=== PATIENT | female | born 1985 | race Caucasian/White ===

== ENCOUNTER 2023-06-14 09:08 | Outpatient (OUT) | payer BC, SELFPAY | END 2023-06-14 09:09 | disposition home or self-care (01) | LOC: SLEEP 09:11 | PROVIDERS: PCP Nurse Practitioner Family; Visit Provider Nurse Practitioner Family | DX: G47.33 Obstructive sleep apnea (adult) (pediatric) (principal) ==

== ENCOUNTER 2023-07-05 11:00 | Outpatient (OUT) | payer BC, SELFPAY ==
--- OUTSIDE RECORDS SUMMARY | 2023-07-06 07:13 | XMS_ITS | CCD ---
Author Organization [facility] Care Team Providers Care Electrical Design Technician Name Role Phone SHIRAZ INTERIANO Attending Unavailable SHIRAZ INTERIANO Admitting Unavailable SHIRAZ FIGUEROA Primary Care Physician Roby Poole Attending Unavailable ZulemaRoby laird Admitting Unavailable ZulemaRoby Attending Unavailable ZulemaRoby naidu Attending Unavailable Zulema, Roby Thompson Attending Unavailable SHIRAZ FIGUEROA Attending Unavailable SHIRAZ FIGUEROA Admitting Unavailable Allergies Allergy Classification Reported Allergen(s) Allergy Type Date of Onset Reaction(s) Facility (2 sources) Erythromycin; Translations: [erythromycin] Drug Allergy [facility] Comment on above: Unknown reaction, nagel d as a child (1 source) Penicillins; Translations: [penicillins] Drug allergy [facility] Comment on above: Unknown reaction, nagel d as a child (1 source) Sulfonamides (Antibiotic); Translations: [sulfa drugs] Drug allergy [facility] Comment on above: Unknown reaction. nagel d as a child (1 source) Penicillins; Translations: [penicillins] Propensity to adverse reactions (disorder) [facility] (1 source) Sulfonamides (Antibiotic); Translations: [sulfa drugs] Propensity to adverse reactions (disorder) [facility] Medications Current Medications Medication Drug Class(es) Dates Sig (Normalized) Sig (Original) acetaminophen 325 mg / oxyCODONE hydrochloride 5 mg oral tablet (1 source) Opioid Agonist Start: 04-17-2015 Percocet 325 mg-5 mg Tab 1 tab(s), Oral, q4hr as needed for pain, 20 tab(s), Refill(s) 0, Take one tab by mouth every four hours as needed for pain Start Date: 04/17/15 Status: Ordered busPIRone hydrochloride 10 mg oral tablet (1 source) Start: 04-17-2015 take 1 tablet by mouth once daily busPIRone 10 mg Tab 10 mg = 1 tab(s), Oral, Daily, Refills(s) 0, Anxiety Start Date: 04/17/15 Status: Ordered Fish Oils (1 source) Start: 08-17-2018 Fish Oil Oral, Refill(s) 0 Start Date: 08/17/18 Status: Ordered Multi Vitamin+ (1 source) Start: 08-17-2018 Multi Vitamin+ Refill(s) 0 Start Date: 08/17/18 Status: Ordered Turmeric extract (1 source) Start: 08-17-2018 Turmeric 500mg Turmeric 500mg Start Date: 08/17/18 Status: Ordered Problems Active Problems Problem Classification Problem Date Documented Da te Episodic/Chronic Substance-related disorders (1 source) Smoker 04-29-2020 Chronic Comment on above: Added secondary to d ocumentation in Social History. Past or Other Problems Problem Classification Problem Date Documented Da te Episodic/Chronic Unclassified (1 source) None (qualifier value) 12-11-2010 Results Test Name Value Interpretation Reference Range Facil ity Coding Summary.on 06-17-2021 Coding Summary. CD:[id number] 13GOf5uYq+PGhlYWQ +DZ1DIHUrB56laHVl hL4GS4zRMD0PEUZVR UKPKI9ZZU7tfEC6GO emT7ZncdTf ShmdvKUnGY69PKm2H EW5hKkeFFmiwE6asC HgE1v0NeWxKI76lO4 2DBsbKLGhAtV8GyJl bjsgbWFy Z6tgWgRtsZIlEcc+P HRhYmxlIHdpZHRoPS cxMDAlJyBzdHlsZT0 jSq7yCPWcSWCjaLlt cHNlOiBj r3ioKIMjJEcxWM1oo SggF4TewZI6LYTxl0 r7Uu68vHN+PHRkIHN 0cVskKMllm668BzPp i4lgBBU9 nHOpORthHOU4L49di 1H9NFBwAWVqQNH3yJ T6cB0mvJooxbwjI5B abCFrLyU5ABJ8jHGh zM9tfJug qaejtR7zHzj+Q09ES Z9KHDWZUV3COxg2I2 RkPjwvdHI+NN16ADL sLV50iQNftCWgj2wx gCy9NxFi PFXdCIZ2jSveKXavx 2CwEJFkK91toJYkz8 B0NRSgaSriyZJpQtF tbLG5xQ5yVIkezaiy n9osqmwu Leknn8frim53yM41N 47gVIsdXIYgSEL9JK ZmKKWivRaleo8ygR9 wIi8+NYxlq0jbd7ec wLp1AwLk HRJfpnPzuHjxPVS6z 4OuSf83R2FaoSteq6 DmIvv7wj58qANvp1A 6xUD3HHniJYPotG8o LWxlZnQ6 KZJeUwMisB51tHEfL LkvIq9gcEnpiMpkXI 0kJQLccwtaVQJbrC9 mCAAbbDObyZblDT3c NTBpbjtm d796FgDpGYC1UCYkc EPsW8PgoV2uNoNgLI NxWJHwB8UkcJRqNJo wK601AQdjQlU3NKCp mgXzX5Ns SQDlhJzgVbW4f5U2G d4Bd4JwrduwBWF9VS rcPVY3SpLmBqWeMkR 2I2GdNzw0JXAcxAbr SK3rX9Xq RPEwqdecrwhuxLI9E SYpZMGeoH57qOOqQO xePd5vx2R3t198DUP aDZSucT38Vv6kaSqf MTBwdCBU pW1eqznfh0zuppuiV zYaRNNlLWc5YCu5OT CsyWybLhCfPGY9GsI 6IDJ1pIPgiZ3hvHgm wpuydB5y Oyc+R35xbT4oSBR7O EX2vomsWCHgroGdCC 70TU46M7IsWyfexKL ibGU+PGRpdiBzdHls LF8hGeMi w1hql7OyJMrqH5KcE ZVuOSgfZfg2LLXbCU U1bRI1nA8aKFIhXDs jf3N3oYE3C1TwedVy fa0rt9sg RPEzMEdzR26wgYVzs 8Z7JNKagVB6LBPkfC bbGxIjjA71Fgd+PGN pvStsr2WpNkybp6pv j6noeKm3 IjMwJSIgdmFsaWduP HT7k5JcDx61X04oUY dpZHRoPSIxNSUiIHZ njOdblt1etK7uRr1+ PGNvbCB3 oDS8oI6iMTJuEnP3J UncS749KrXosKZpRg akr4srj9ykxVy5AhY wJSIgdmFsaWduPSJ0 p3QzNv90 K72pDTciBNWaWZTbY SIoVGFlrAkfvr4ayZ 9wIi8+DG1qv2ujdz8 0dQ42tFQ+PHRkIHN0 eWxlPSdw GHBvcU6wWHhfSrR9L CIbTxUqgS51pEYzKF jjSe8jcDntuSlmNE2 eBZDizcxsg851EkOg j3fvBPZp qFWlTIzuQXW5C02gg 2X9SIImEKLjDGU9sS Q2zU7evEcndcgewDM mdDsgdmVydGljYWwt BIxvF724 IHRvcDsnPlBhdGllb uBjUhHcWOd1V1TuOp e5QTNsvDxsCC8npDX iJAhwOp5agKxwwDcb UC3cPRNh mtwns335ZbLrx1qiY NYqpQSsJBbwZTA4B6 1ja2E9TSWpZHNtHJS 0cQL7gX8rnUbrrans bGVmdDsg dmVydGljYWwtYWxpZ 246IHRvcDsnPkJpcn TkFPPclTV9FX68AS5 7gSYev4Y1fEF7K6Df ZGRpbmct ovylaCE1YHVmEFHlb H85Fd2pqGdwQp3cQI MlSLP4PTFxxQSkE0T dqS3oSdWpZOEuEAQv N6UqgWGk MKsuR143QStsZeS5S OCmtyOpL3DqMAQbtE pmVfZ4m5Y0St1SE4C 9ZB82XU64yLQjd5A0 mAV6J2Sa KETnfglqliiaoKE8J DYjQTKclG94Xt4cnQ rzBe6tMVGaTCR4FGQ cjLKcM9DhoU9kPfBn MDAwMDAw Y1YteEIeAMbcG405J KreErP6KVMhgrBeK4 GuQDAzwDhcXlU8v3J 1Nt0RQOr0WD86CK58 xXSob0Q4 rXG6V2NqWQCxmqivn qfksTB5ICPfARPoeB 84La7vmIgoWi2gZIT bXBG8KFPinRWwJ3Cq cT9aMwVr JYIvGKMwV4InuZXaM RqyV575JBzuGlR7GB RrefGlG8FzKSXdqBf tBcO5a2Z2Ud8OQCIc XQ39AIW2 uMX6SY82DZ81I9WcS jwvdGFibGU+PHRhYm xlIHdpZHRoPScxMDA jVtIqoObuFU7eYr3i ZGVyLWNv mFgaqPUtYlCsg0lzG DNfLJdfWT4vcEbxX4 JgiOY2TXKrb3r3Uj4 9H64bY1IdrGH+PGNv jSN5hRP7 sE3nYyWsBtF8CSblV 946UvYozDFzAwrue5 jkx9prfXu3VeH3RXF lvyOfwXfbNIU4y4Tt Uz46W55j IHdpZHRoPSIxNSUiI BRskZullb0eiP7zXt 8+BLRamMM8yIO7kJ8 jYxWuKlO5KLifP188 InRvcCIv Fqlbe8rtx3krlQj2T jIwJSIgdmFsaWduPS B4q7SjKb46I8XlvRn fj4VlNzh9zo29fZDs l2W4sAK6 V4UoEYFcwwqwfMKfq SnrOW9wCLGsqzvlAG LfdT6rGXEvD6c6HuJ qDhE1NAnlA8QuszV1 IDEwcHQg PUowYGH7H52iy3V5Q THaVWReNMT1xLH3qX 1hbGlnbjogbGVmdDs gdmVydGljYWwtYWxp I021XXEu dKjmGFHviX2vJMPht EGdtZzdJV3mYXMzhr snPktJTlNFWSwgQkV DAQBCIBMVST32UK78 mHZil5S0 aNS4N6OwDLRjvercu dfjrVJ5ALDgKQNblO 90hUXfPOtuEw4er4E 5p733VZFbBAXtiM28 Uy9mjVyv JPDloDENjG9qggbuu 2xvcjogIzAwMDAwMD l6ZSb4SGQvcPdrBsV eHGP2MtP8ITF7xMDr bD2srHgo vozxxE8xUsq+MTIvM RpxQYw8AQzmkSL+PH XgFBM0rAtiWByvPWG vtZ4zOYKkQ3w6VeYw XtG7EWri B6OaGHBpzabsEa41u C7cCjXcNdV0QJmrL9 CqdzA4ZJEjjCKvZWp sPJD0I98fl1L1KIVy MDAwMDA7 yRC6dH1vaMsguwkyp GVmdDsgdmVydGljYW ruZSbhA468RNZmwVq vDrX4KTojCPQnVS23 FS22eHNq l0F3rRN9B4HmFLImv ucpzwzrkTG9STQpES OyiQ23zSPbLOtpJh2 wl8E1s379CLNbFTVe eA43Oi7c cXjhYWOgbNHEyE3dp biqi7ssimjdAyKmTF GeXVf0AAl6JCWfbKv tFpJtTXW8MgP0XZL7 iHNicU8m dBzapcgzgR1kPzi+R uDlXMruBW42VW81pD Vqu2H3uVX6T1KkOGK ovxgzvxcwzXD6BQDz KHVlaG13 hOPdXNcsMr0xr0H0h 700YEFnDBRqoA07Ih 4pdWlmCNUhmHGSiE5 xgqdal8emfhgtAzPw MDAwMDt0 TJd1SSDgoUptNgQiD OR8VuV9WBK5xOOgqY 2wcXtxecnexL8wTee +Z6K8uLM6tRJvbJdl dGQ+PC90 pu78G2NqEnhjIps6R RTgKGQ3uGS4bL9iIT SoYHqxb5T7zTV6Z2S lkzEhsz3uj2swHKFu DBipD35l aYOwf6Z1YZGfjCC9E YUbhFerUcWdrR92Dw c+RIFnhJwnj1WnXfw wu9bmv7zrhVh1ImWt JSIgdmFs xTmwCTE2d9ApJi33Q 29sIHdpZHRoPSIzMC ZjDMShjLexyg8ekL0 wIi8+RHBulUZ8oCX9 tM1oVhEm GmM7YBuzY599JcQnh OJuObbss3pap7oyfB g9AaQbAUFlbjGreUk zSQF9p4YhBm33D4So xYacj9Qe Hqz9yk78vBKpf9S0b MX8H4PlRYGviuwlpI FovYdbVW8cFFLjmxu bSJWyqF0sRTWeV8p7 OiAwLjA1 JIacG9RfyaD9HCFdt VJtPCGwkNTKkY4pzh otq8sfoorrFiOcODI mVZn6MKa8XLVvxVdi OiBsZWZ0 XqF5IME1dQHjeN7vo XzhascuzA8mDob+UG i8o1wsuHIzRK5xoXR 8GS60QX57xKGph6C7 yWF2C3Ph WMSdksprxofnwXH4Y HFcWAKaeF51Po6ekC uxKu2jVDJhZVF2JBB kgWYdP6AqoO3gKgUu MDAwMDAw G0QuwQNsEHgeV497T WtdEzU5NHKiuiFaB2 WhRCDnjDubUiY8p2B 1Fm3UNG19KG05MD08 lRRij3N6 eSD4X8EeJYKlxzueu wrvgJC5QNHpLKBroI 95Jc0pyXvaKz2cQNB gLAE2PRGbiRGmY0Af aL1lQaHu OHXfBBRgL9ZowDWwW JpzZ369ARzuCqU0PU BdvmOcL9RvFIGogAx wMbR4z4X4Jp0EVi67 WA00KD73 pYIxb8F0bCZ0M7FrG JOzshisfafdqZC0EM GfCKRqbP53Us0qhVf nZx2lJBRnSSA1VUWd bIWsQ6Pv zN7nUeMfNTEqBKEdV 5LvwWJaLWqaZ345IA lbVnN1VYEstzXgJ6H gRDIiwCqmTbZ3p7M4 Qj7MLIoc ico0J3UwOnvnyQG+P V57PJEvNA22gGFrpA Xgn4bweFk0ZsXbMXG uQYK8jZzoQCvyd5Ua EKWbJ79v bGFw (more content not included)... Normal [facility] CHEMISTRYOrdered By: SYSTEM SYSTEM on 06-11-2021 Free T4 index Calc [Mass/Vol] 5.40 ng/dL Low 5.90 - 13.10 ng/dL [facility] T4 [Mass/Vol] 5.0 ug/dL Normal 4.6 - 9.1 mcg/dL [facility] T4 uptake [Mass/Vol] 43.2 % Normal 32.0 - 48.4 % [facility] TSH Qn 0.67 m[IU]/L Normal 0.34 - 5.60 mcIU/mL [facility] Consent for Treatmenton Consent for Treatment [id number] 1ACE#1.00CD:127 Normal [facility] Physician Orderon 06-11-2021 Physician Order [id number]#[id number]:12 7 Normal [facility] Thyroid IIon 06-11-2021 Free T4 index Calc [Mass/Vol] 5.40 ng/dL Low 5.90-13.10 [facility] Comment on above: Performed By: #### 1 [id number] #### [facility] [address] [place] [address] T4 [Mass/Vol] 5.0 microgram/dL Normal 4.6-9.1 [facility] Comment on above: Performed By: #### 1 [id number] #### [facility] [address] [place] [address] T4 uptake [Mass/Vol] 43.2 % Normal 32.0-48.4 [facility] Comment on above: Performed By: #### 1 [id number] #### [facility] [address] [place] [address] TSH Qn 0.67 m[IU]/L Normal 0.34-5.60 [facility] Comment on above: Performed By: #### 1 [id number] #### [facility] [address] [place] [address] Consent for COVID Vaccineon 03-06-2021 SARS-CoV-2 (COVID-19) RNA KAYLA+probe Ql (Unsp spec) [id number]#1.00CD:12 7 Normal [facility] Coding Summary.on 02-11-2021 Coding Summary. CD:[id number] 34ZMh1sRw+PGhlYWQ +WY0YXFZcP51gnUFj jQ2TP5yMSV2SACXPB MPGBK9IVJ5jmSI9MD zdT1TgiyGa EyckwWIbJZ15BBi3M OF1bYkmSHnigD5hoF PrO4m3YoPuRS02uY3 2PRcoIJWlXxG3ZgQv bjsgbWFy P0daHoLbnNChIli+P HRhYmxlIHdpZHRoPS cxMDAlJyBzdHlsZT0 fWb7fJIPeLHZffOws cHNlOiBj u8fcOLLfDCzxKU4jl UkeO4QgiDV1TLLma6 s5Qm60yHH+PHRkIHN 4gMzvNKcrd778ZxIy k2mcJMY8 cQMnZKwzYDP7S50yd 7P8WVGtQTBxTSL7gJ O7hV4yxDpryuilE3X gqEOvHjZ7GDD8jZRf nW6jzGou okhqrH3cAoe+Q09ES C5GHXVNAW9BLbm5D7 RkPjwvdHI+XL75UDM mPC69hZPwnWXsr3hx lIn7CrRg XGYeKOQ1oYmpKTzaz 0BzELZaY53bdHXhx9 D6XMKppUtfxTJvVsB bkTF5dB0sPQomscsy z1lwedys Hxiui9wplr24eT57M 49jVDfwEFEoORK1EL ElVLWtgPztjm9fuP9 wIi8+WSobe0ezv0id yVc0ChWq BMArtcJctPwmORB2t 8DeDw80I0SuoJcmu8 PlQax6sg11uOLyy9W 6eNE8KBujKQQkuU4c LWxlZnQ6 DAAlQaAfdE31mBGrY ErrRw2viQuyjWzdCS 0aJYFfwfwpCZIepE8 mFGVttTRbySdiKH0l NTBpbjtm u216XoRgDMG4WMEvo VFwA5GugX8sHnCfQZ XeLCNgU2WghFWwFWj fQ451WNteEuJ9XXDm mdUgK0Ct AODeeFzlNkV0u4P9S w4Sw3LvgqxfRXZ2TU bjYPNaLmP6RjKkGbA 6Q3FsFex9IUUgfHuv PE9gK1Qd ZXWbdswtofqncKY4J SDgIUHkkN26gGQdQL msBu6lw1Q8r598ZQR tMKUetI72Fw5ldQir MTBwdCBU uU6dthyoo1npzeswK eJmBMKwLKq6BTn0LJ HeaMacPoEwNLH6QiR 1GBY4fICzhV1lkTzj uowwtA7g Oyc+D40uoQ7lCLS1L TT5pvptGAAmgxUoWT 95SU57V2FqBrqxeQA ibGU+PGRpdiBzdHls WA5xVgBj p1tfl4XlOPdnQ3EsD LVnWQkcEvn7XUJiVL G0zCR9wA8qFMFaUAo kv3F2lOM3A6CigxJh aw4pt5xq KUSdUCxnM90bpIWzl 0S9NVEyeYR5DOFvaC teUnTeeR59Ovm+PGN vuHenb5XpWkimj5ls t6fznIf2 IjMwJSIgdmFsaWduP EA0x5SlRz38K15mJV dpZHRoPSIxNSUiIHZ znXwymz7wuD4lWb5+ PGNvbCB3 dSQ0iJ8nKGQvPwK6A EuhP698BvAjdGVpXb ejx6lzz2fbgIb0EjS wJSIgdmFsaWduPSJ0 x9EcGv15 C00qDHbpOJLmEAJjR AKgDPMnvIbhnq0mtX 9wIi8+KV0ed6vrcv4 6gB19pYI+PHRkIHN0 eWxlPSdw CXQnkQ0cPFeuGsQ5R HAeWsVzrH04rMCdTM ixBo5deZnsfDlnDO2 iPQHlwuoue863QhNd a6urKPVs wKDfAKyqJMD7Z75ks 2H8IXZuBONpUMQ2oS U2fE4goXjovptsaGX mdDsgdmVydGljYWwt LFneN145 IHRvcDsnPlBhdGllb iQpUtHyPSh0U2IdNl s3ALNwwIixRX1ogIK iPKwbYb4tuEoflSos OV6kESGg ikobg005YhLjf6wiM AYjzUXdJTidUVX5O3 8ea3W9BFXzBODzDAB 5aYJ0fF8ovZlljnqp bGVmdDsg dmVydGljYWwtYWxpZ 246IHRvcDsnPkJpcn ZzEXBzlQB1DL98US3 3pZLsg6F0hOE6L9De ZGRpbmct uhufrMV9HUYbQKTuk J43Ft2twQlyOm2rIF LnUHS4XQXndNDiZ9X fwS7pIdRrIZPyAPCz Z5GorAVy XSjlA391KJbjRkU3W LKfdzJtM6KzLHRivW eyRfB0z3R8Ru6LT3T 0ED00XJ69hEDnz1S5 qCQ1O3To KJJcmqhzdyxxhLI3W JAwQTLgtT84Mt4wsU tzZa2yCRZiCTV9JOK efDCqA5BtkO5hGaYr MDAwMDAw M9WliHXrVGhtN793H ZsqItT2WORbzuJvB1 ZuGJZxaYwaBsW8h9N 2Oe1PEWp4DT17YE79 fPUur2J5 cXT2O2ItGEYcxhamc stjoER7IWOrREJinL 40Hl2blMxuZq4uDUY kEMP0AYYovRPaU4Qh uL9pLcOi DYAfZLJwC0HkwMZnS FmcK176JYltCcR3QP OobmXbW6NdWEEmxAc iOyL8e7E7Az8AVUDt RT28MUH8 fIB6FW66FC47H7IuH jwvdGFibGU+PHRhYm xlIHdpZHRoPScxMDA tWbRfpOncJJ9fOx1c ZGVyLWNv fMpwnPRvHnRdo4inZ MRrFQgrCR9laGrhV4 JmmIL4VJJig0f5Qe0 5E03pU6IhpCB+PGNv bXB7qGN4 bY1gQwFeNzO4EZxqY 920CgKejNQsHtcre3 yty9hzwDk0QmT8FAP lxfEovXkgDGL3y5Ig Rj64D88s IHdpZHRoPSIxNSUiI KHjqKrnvp5noE9lJh 8+MXPaoTS3pXQ9uG2 yBmPiTnG2HNwjV366 InRvcCIv Tbjjn8ohx8zgpJk1E jIwJSIgdmFsaWduPS C7k3NeVj25L6RxxMe si3EsHqn1sb77bHYc q3Q4jTV9 I2PzYEQsffxqtFRbv TryWD3kMROnnoaqEW QeaV3iUEHvU9p0NzJ yQmM0FPzxI6UiufX4 IDEwcHQg RYuxJXD0Y46zt5N5E LUpWOCxBVQ5qHJ4xH 1hbGlnbjogbGVmdDs gdmVydGljYWwtYWxp I153YXJg zRzbTPBzsR1cRUFrh GPqjLszAW6uUOKriu snPktJTlNFWSwgQkV PNOKHYXEDWQ62OL15 mOVko5U7 tSK4M3BuPNSnuxlcy cqeyNX6YJJaDMOykY 92wKYtINuiYh6yy0C 6c398FIPeOYBurB83 Cd5owEhi QSUgxBDKqX6xfceyv 2xvcjogIzAwMDAwMD w7WFw8XFXivXciXkL uHZU9ZvJ2YVD1iGMs mR9kcDts mvyymB6pYhz+MTIvM CahFJb2YDjfbBR+PH ZwSSO3lDgxGXmuJGR beZ1fFCAiF2e9RhFs OeE7FNbx Z8OjCAKmnzgmTb02l X3oSuNsZwH6ZYytE8 EufkL9QFZzsNDfMZd xRHQ5R30xw7U6BROg MDAwMDA7 qAD9kO9jpQawchxas GVmdDsgdmVydGljYW phNThzS539SJSukAa pObM2QOphOWZvYG92 VN30yIUf p6A8sWT5Z7PzOLKxd owljbfxwCS5TJTfYD DnsE20bNTpVIgqWa6 xt1B6g698ZPTkVPNc dQ14Yu1o eJhqVGHugAXLqJ4kz cmgq0mqqnrzKnXnXV ZiWNh2XHt8HEQuoYa hNyUdXPZ9CkN0TQD4 sHLjyX2y cXptfmsxtQ8lWdy+R dCwBCyqDA03SO01xU Kyj3U0aCP3X6DfDHH wcazzkxaqxPW7MVDp MNBvpZ69 gSUkGYblUp9yd7R2m 063KBKhJOCprB75Sd 4icGgcSDLnhOHXtG7 lxoyts5hxkgrtYoPt MDAwMDt0 LIc1DKOznHdnJwWxN CL3OaL5WWU6uVSzuZ 7aoFblvangpB6kXbc +JoNtnJBtcG8uRI98 RK08K3Ws PjwvdGFibGU+PHRhY mxlIHdpZHRoPScxMD NsKkZdxLboUW0cNr7 yZGVyLWNvbGxhcHNl RnCpd5ln KJFgJYibNN7luWvyI 9PaxRC5JJPwb2y0Cw 22T12wG9FysJG+PGN jmQG1rOR7qG5qKfSo TiT7KWsq K523ZkIktZXhBampx 4tfx8qhvAq3KrRkUH YpbaJbaJidZAE9p9Y fRl51H50dYCxuYCJu PSIyMCUi HMRwaTqetw7isV6yF i8+YFRjdHT5zIB8gO 8sMiSjUjJ1FIwyK44 7CkTotVEoNxetZ74u U5XlzGV+ MPEwFpa9KJShrSvmB T2phRPjIOhaKz5uBG B7SpQhPmEnCFvwW1D hZGRpbmctcmlnaHQ6 IDAuMDUw rF93Az0gyZygLy3jK VGaPYO0EJCohDVzT2 BplO2vMfAmXVImHAY oL1VuoLKzGKewW463 IGxlZnQ7 TIZvucXkZ5RoKBClx SyoWuF7r6R5Dz3AxZ aniOWfGH5jGuKiOEy 4Q2VsRxl1PYVftAeu JF5acGDw AYhePp7ukMfwuYubF B7fISBdiaxjz614Kh Erk4wsVSKxzXEmVRx rIZL0H49we6O4QKGq MDAwMDA7 qVS3sX4mwZhuzmuyo GVmdDsgdmVydGljYW xbLXvcY111RBBlrWs iZvABAnf3L5WcXre7 ZCBzdHls JC3ftAQtFIwoRw1eu JvzaVurFF3tXWNycz zds132DrBdj0nuKVY qvVXxCDfgBDB2G80m y6V1RLKj UODeRSR4qEH8iY8dd GlnbjogbGVmdDsgdm IvlWjvWVvkMIdoJ42 5BDZhbWmhVu2HMcd9 B2HhAun0 DRPuwRmzSB7kbYUnA FphFh2vjGchuJdsVU 6gXVDotuosr846NeI pv4qoYAFjnVFgEDul GIF8Q40o h3K8XQQvDQGiYGK0c ZO7wR5guVmgvawqfG VmdDsgdmVydGljYWw iQKiaH641XAGgkDeg PlBheWVy OjwvdGQ+YV61sx41C 6KjXdmyCcg6XSRgAN S1aXP7aL2cXIBhLXo ns5L3lIK0F8OetgVz sg5jl2sy YXBz (more content not included)... Normal [facility] Consent for COVID Vaccineon 01-01-2021 SARS-CoV-2 (COVID-19) RNA KAYLA+probe Ql (Unsp spec) [id number]#1.00CD:12 7 Normal [facility] Consent for Treatmenton 12-08 Consent for Treatment [id number]#1.00CD:12 7 [facility] Encounters Encounter Date Encounter Type Care Provider Facility Start: 11-11-2021 ambulatory Roby Poole Facility :[facility] Start: 06-11-2021 End: 06-12-2021 ambulatory SHIRAZ FIGUEROA Facility:[facility] Start: 06-11-2021 End: 06-11-2021 Patient encounter procedure SHIRAZ FIGUEROA [facility] Start: 02-24-2021 ambulatory SHIRAZ INTERIANO Facility:[facility] Start: 02-05-2021 End: 05-07-2021 ambulatory Roby Poole Facility:[facility] Start: 12-25-2020 End: 03-26-2021 ambulatory Roby L Zulema Facility:[facility] Start: 11-23-2020 End: 02-22-2021 ambulatory Roby L Zulema Facility:[facility] Procedures Date Procedure Procedure Detail Performing Clinician Start: 04-17-2015 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 SHIRAZ FIGUEROA Start: 02-06-2001 excision foot lesion CAPRICE FIGUEROA None (qualifier value) ADRIAN FIGUEROA Immunizations Immunization Date Immunization Notes Care Provider Fa cility 02-05-2021 COVID-19, mRNA, LNP- S, PF, 30 mcg/0.3 mL dose SHIRZA FIGUEROA [facility] Comment on above: Reason for Medicatio n: Prophylaxis 12-25-2020 COVID-19, mRNA, LNP- S, PF, 30 mcg/0.3 mL dose SHIRAZ HENRY [facility] Comment on above: Reason for Medicatio n: Prophylaxis 11-23-2020 influenza virus vaccine, unspecified formulation; Translations: [Fluzone PF Quadrivalent ] SHIRAZ HENRY [facility] Comment on above: Reason for Medicatio n: Prophylaxis Payers Date Payer Category Payer Unknown [id number] 2020 Unknown [id number] 1984 Unknown [id number] 2.16.84 [id number] 1984 Unknown [id number] 2.16.8 [id number] 1984 Unknown [id number] 2.16.8 [id number] 1984 Unknown [id number] 2.16.8 [id number] 1984 Unknown [id number] 2.16.8 [id number] 1984 Unknown [id number] 2.16.84 [id number] 1960 Self-pay Social History Date Type Detail Facility Start: 04-29-2020 Tobacco smoking status Light t obacco smoker (finding) [facility] Comment on above: pt states every few days a few cigarettes Sex Assigned At Female [facility] Evaluation + Plan note Note Date & Type Note Facility Evaluation + Plan note No data available for this section [facility] Hospital Discharge instructions Note Date & Type Note Facility Hospital Discharge instructions No data available for this section [facility] Summary Purpose Family History No Family History Records FoundNo Family History Records Found Advance Directives No Advanced Directives Records FoundNo Advanced Directives Records Found Additional Source Comments INFORMATION SOURCE (unrecogn ized section and content) DATE CREATED AUTHOR 02/25/2021 [facility] DATE CREATED AUTHOR AUTHOR'S ORGANIZ ATION 11/11/2021 [facility] FOR RECORDS PERTAINING TO PATIENTS WHO ARE OR HAVE BEEN ENROLLED IN A CHEMICAL DEPENDENCY/SUBSTANCEABUSE PROGRAM, SOME INFORMATION MAY BE OMITTED. This clinical summary was aggregated from multiple sources. Caution should be exercised in using it in the provision of clinical care. This summary normalizes information from multiple sources, and as a consequence, information in this document may materially change the coding, format and clinical context of patient data. In addition, data may be omitted in some cases. CLINICAL DECISIONS SHOULD BE BASED ON THE PRIMARY CLINICAL RECORDS. [facility]. provides no warranty or guarantee of the accuracy or completeness of information in this document.
== END 2023-07-05 11:01 | disposition home or self-care (01) ==
LOC: SLEEP 07-06 07:11
PROVIDERS: PCP Nurse Practitioner Family; Visit Provider Nurse Practitioner Family
DX: G47.33 Obstructive sleep apnea (adult) (pediatric) (principal)
CPT/HCPCS: 95806

== ENCOUNTER 2024-01-01 09:43 | Outpatient (OUT) | payer BC, SELFPAY | END 2024-01-01 09:44 | disposition home or self-care (01) | LOC: PST 09:43 | PROVIDERS: PCP Nurse Practitioner Family; Visit Provider Surgery | DX: Z01.818 Encounter for other preprocedural examination (principal); Z80.0 Family history of malignant neoplasm of digestive organs ==

== ENCOUNTER 2024-01-17 06:59 | Day surgery (SDC) | payer BC, SELFPAY ==
--- NOTE | 2024-01-17 | OP_ITS ---
OPERATION DATE: 01/17/2024 PREOPERATIVE DIAGNOSIS: Family history of colon cancer. POSTOPERATIVE DIAGNOSIS: 4 mm rectal polyp. PROCEDURE: Colonoscopy to cecum with hot snare polypectomy x1 for rectal polyp. SURGEON: Diego Su M.D. ANESTHESIA: Monitored anesthesia care. ESTIMATED BLOOD LOSS: Zero. INDICATIONS AND CONSENT: Patient is a 38-year-old female with family history of colon cancer in her father, presents for screening colonoscopy. Indications, risks, benefits, alternatives of proceeding with colonoscopy were explained extensively to the patient, including the risks of bleeding, colon perforation or anesthetic complications. All of her questions were answered. Informed consent was obtained. PROCEDURE: Patient brought to the operating room, placed in the left lateral decubitus position. Monitored anesthesia care was provided. Rectal exam was performed which showed no masses or blood. The scope was inserted into the anal canal. Under direct visualization was advanced. It was advanced to the cecum where cecal markings were clearly identified. Upon withdrawal of the scope, mucosal surfaces were carefully examined. There were no mass lesions or inflammatory changes. There was noted to be a good prep. There was no significant diverticulosis. The scope was retroflexed in the anal canal. There was noted to be a 4 mm irregular sessile polyp. This was removed with hot snare with good hemostasis, was sent off to Pathology. There was no significant hemorrhoidal disease. The scope was then withdrawn. Patient tolerated procedure well, was sent to recovery room in good condition.f/u colonoscopy should be in 5 years, but may change based on the pathology report. CC: Juliana Cisneros, CAROLYNN NOLEN
--- OUTSIDE RECORDS SUMMARY | 2024-01-17 07:01 | XMS_ITS | CCD ---
Author Organization [facility] Care Team Providers Care Red Leader Name Role Phone JULIANA INTERIANO Attending Unavailable JULIANA INTERIANO Admitting Unavailable JULIANA CISNEROS Primary Care Physician [phone] Provider, None Primary Care Unavailable Juliana Cisneros MD Unavailable Gordon Chirinos MD Primary Care Provider [phone] NANCY LARA Attending Unavailable Diego HARLEY Attending Unavailable Allergies Allergy Classification Reported Allergen(s) Allergy Type Date of Onset Reaction(s) Facility (4 sources) Erythromycin; Translations: [erythromycin] Drug Allergy 8 Patient reported problems (finding) [facility] Comment on above: Unknown reaction, nagel d as a child (1 source) Penicillins; Translations: [penicillins] Drug allergy [facility] Comment on above: Unknown reaction, nagel d as a child (1 source) Sulfonamides (Antibiotic); Translations: [sulfa drugs] Drug allergy [facility] Comment on above: Unknown reaction. nagel d as a child (2 sources) Penicillins; Translations: [penicillins] Drug Intolerance 8 [facility] (1 source) Sulfonamides (Antibiotic) Drug Intolerance 8 [facility] (1 source) Penicillins; Translations: [penicillins] Drug allergy [facility] (disorder) [facility] [place] Comment on above: Unknown reaction, nagel d as a child (1 source) Sulfonamides (Antibiotic); Translations: [sulfa drugs] Drug allergy Weal (disorder) [facility] Comment on above: Unknown reaction. nagel d as a child (1 source) Sulfonamides (Antibiotic); Translations: [sulfa drugs] Propensity to adverse reactions (disorder) [facility] Repository Medications Current Medications Medication Drug [...] Ordered busPIRone hydrochloride 10 mg oral tablet (3 sources) Start: 04-17-2015 busPIRone 10 mg Tab See Instructions, 2 tabs qam and 1 tab qpm, Refills(s) 0, Anxiety Start Date: 04/17/15 Status: Ordered Start: 04-17-2015 take 1 tablet by shahnaz th once daily busPIRone 10 mg Tab 10 mg = 1 tab(s), Oral, Daily, Refills(s) 0, Anxiety Start Date: 04/17/15 Status: Ordered Fish Oils (1 source) Start: 08-17-2018 Fish Oil Oral, Refill(s) 0 Start Date: 08/17/18 Status: Ordered levothyroxine sodium 0.025 mg oral tablet (2 sources) l-Thyroxi ne Start: 12-12-2023 take 1 tablet by mouth once daily levothyroxine 25 mcg (0.025 mg) Tab 25 mcg = 1 tab(s), Oral, Daily, Refills(s) 0 Start Date: 12/12/23 Status: Ordered Start: 10-02-2023 levothyroxine (Synthroid, Levoxyl) 25 MCG tablet 10/02/2023 Active 1 ml medroxyPROGESTERone acetate 150 mg/ml injection (2 sources) Progestin Start: 12-04-2023 medroxyPROGEST ERone (Depo-Provera) 150 MG/ML injection Indications: control counseling 1 injection Every 10-12 weeks 1 mL 3 12/04/2023 Active Start: 12-03-2023 Depo-Provera 1 50mg/mL intramuscular suspension 0 Refill(s), Refills(s) 0 Start Date: 12/03/23 Status: Ordered Multi Vitamin+ (2 sources) Start: 08-17-2018 Multi Vitamin+ Refill(s) 0 Start Date: 08/17/18 Status: Ordered Turmeric extract (1 source) Start: 08-17-2018 Turmeric 500mg Turmeric 500mg Start Date: 08/17/18 Status: Ordered valACYclovir 1000 mg oral tablet (2 sources) Herpesvirus Nucleoside Analog DNA Polymerase Inhibitor, Herpes Simplex Virus Nucleoside Analog DNA Polymerase Inhibitor, Herpes Zoster Virus Nucleoside Analog DNA Polymerase Inhibitor Start: 12-15-2023 valacyclovir 1 g Ta b as directed, Refills(s) 0 Start Date: 12/15/23 Status: Ordered valACYclovir (Va ltrex) 1 g tablet TAKE 1 TABLET BY MOUTH TWICE A DAY FOR 5 DAYS for 5 Active Completed/Discontinued Medications Medication Drug Class(es) Dates Sig (Normalized) Sig (Original) FLUoxetine 20 mg oral capsule (2 sources) Serotonin Reuptake Inhibitor Start: 12-12-2023 FLUoxetine 20 mg Cap 20 mg = 1 cap(s), Oral, Daily, 0 Refill(s), Refills(s) 0 Start Date: 12/12/23 Status: Ordered Start: 03-11-2023 take 1 capsule by [facility] once daily FLUoxetine (PROzac) 10 MG capsule Take 10 mg by mouth Daily 03/11/2023 Active Problems Active Problems Problem Classification Problem Date Documented Date Episodic/Chronic Anxiety disorders (1 source) Anxiety 12-12-2023 Chronic Contraceptive and procreative management (2 sources) Patient encounter status; Translations: [Encounter for other general counseling and advice on contraception] 12-04-2023 Episodic Other nutritional; endocrine; and metabolic disorders (1 source) Body mass index 30+ - obesity 12-15-2023 Chronic Other nutritional; endocrine; and metabolic disorders (1 source) Obesity caused by energy imbalance 12-12-2023 Chronic Other screening for suspected conditions (not mental disorders or infectious disease) (1 source) Cancer cervix screening status; Translations: [Encounter for screening for malignant neoplasm of cervix] 12-04-2023 Episodic Residual codes; unclassified (1 source) Obstructive sleep apnea syndrome 12-12-2023 Chronic Residual codes; unclassified (1 source) Family history of malignant neoplasm of digestive organ; Translations: [Family history of malignant neoplasm of digestive organs] Onset: 12-15-2023 Episodic Residual codes; unclassified (1 source) Family history of cancer of colon 12-12-2023 Episodic Substance-related disorders (1 source) Smoker 04-29-2020 Chronic Comment on above: Added secondary to d ocumentation in Social History. Thyroid disorders (1 source) Hypothyroidism 12-12-2023 Chronic Past or Other Problems Problem Classification Problem Date Documented Da te Episodic/Chronic Unclassified (2 sources) None (qualifier value) 12-11-2010 Results Test Name Value Interpretation Reference Range Facility Ambulatory Visit Summaryon 1 02-13-2023 Ambulatory Visit Summary Ambulatory Visit Summary JONATHAN HERNANDEZ :1985 Visit Date:12/15/2023 Ambulatory Visit Instructions Your Diagnosis Family history of colon cancer in father Your Care Team Attending Physician - CHERRI LONGO, Diego Christopher Primary Care Physician - JULIANA CISNEROS CNP This Is Your Medications List busPIRone (busPIRone 10 mg Tab) fluoxetine (FLUoxetine 20 mg Cap) levothyroxine (levothyroxine 25 mcg (0.025 mg) Tab) medroxyPROGESTERone (Depo-Provera 150mg/mL intramuscular suspension) multivitamin (Multi Vitamin+) Procedures Performed excision of enlarging painful hemangioma of scalp (04/17/2015), excision foot lesion (2001). Discharge Vitals Heart Rate (Peripheral) 85 Respiratory Rate 16 Blood Pressure 114/77 Height 156 cm Height 61 in Weight 73.4 kg Weight 161.48 lb BMI 30.16 Medications What How Much When Instructions Unchanged busPIRone (busPIRone 10 mg Tab) 1 Tablets By Mouth Every day Unchanged fluoxetine (FLUoxetine 20 mg Cap) 1 Capsules By Mouth Every day 0 Refill(s) Unchanged levothyroxine (levothyroxine 25 mcg (0.025 mg) Tab) 1 Tablets By Mouth Every day Unchanged medroxyPROGESTERone (Depo-Provera 150mg/ mL intramuscular suspension) 0 Refill(s) Unchanged multivitamin (Multi Vitamin+) Allergies penicillins (Hives) sulfa drugs (Hives) Problems Ongoing - Any problem that you are currently receiving treatment for. Anxiety Family history of colon cancer in father Hypothyroidism Obesity due to excess calories Obstructive sleep apnea syndrome Smoker Historical - Any problem that you are no longer receiving treatment for. None Patient Survey You may receive a survey via text or e-mail asking about your office visit. Please share your experience with us by completing your survey. We appreciate your feedback and thank you for choosing us for your care. Normal [facility] Consent Formson 09-18-2023 Consent Forms [id number] GTIFF Normal [facility] CMP Standardon 09-14-2023 eGFR Non AA >60 Invalid Interpretation Code [facility] Comment on above: Performed By: #### 1 [id number], [id number], [id number], [id number], [id number], [id number] #### [facility] (DEFAULT) [address] [place] [address] 52026 eGFR AA >60 Invalid Interpretation Code [facility] Comment on above: Performed By: #### 1 [id number], [id number], 8999021, 7369923330, 7455098525, [id number] #### [facility] (DEFAULT) [address] [place] [address] 33905 Albumin [Mass/Vol] 3.9 g/dL Normal 3.5-5.0 [facility] Comment on above: Performed By: #### 1 [id number], [id number], 0554095, 9753613048, 0897237853, 7550621 #### [facility] (DEFAULT) [address] [place] [address] 54615 Albumin/Globulin [Mass ratio] 1.3 {ratio} Low 1.4-2.6 [facility] Comment on above: Performed By: #### 1 [id number], [id number], 1960628, [id number], 7215821295, 0525526 #### [facility] (DEFAULT) [address] [place] [address] 42988 Alk Phos 62 IU/L Normal 32-91 [facility] Comment on above: Performed By: #### 1 [id number], [id number], 9730753, 1798544343, 2062386010, 4890160 #### [facility] (DEFAULT) [address] [place] [address] 54553 ALT [Catalytic activity/Vol] 85.0 U/L High 14.0-54.0 [facility] Comment on above: Performed By: #### 1 [id number], [id number], 9563389, 7546688772, 2927642086, 3072098 #### [facility] (DEFAULT) [address] [place] [address] 42278 Anion gap [Moles/Vol] 5.6 mmol/L Normal 5.0-19.0 [facility] Comment on above: Performed By: #### 1 [id number], [id number], 6546732, 1009950524, 6259878504, 9482600 #### [facility] (DEFAULT) [address] [place] [address] 26676 AST [Catalytic activity/Vol] 71 U/L High 15-41 [facility] Comment on above: Performed By: #### 1 [id number], [id number], 8896047, 8817430419, 0323515960, 2497609 #### [facility] (DEFAULT) [address] [place] [address] 83219 Bili Total 0.7 mg/dL Normal 0.3-1.2 [facility] Comment on above: Performed By: #### 1 [id number], [id number], 0277681, 0501582363, 1404724629, 4684060 #### [facility] (DEFAULT) [address] [place] [address] 90418 Calcium [Mass/Vol] 8.2 mg/dL Low 8.9-10.3 [facility] Comment on above: Performed By: #### 1 [id number], [id number], 5936804, 9442274571, 3385342640, 0985436 #### [facility] (DEFAULT) [address] [place] [address] 96641 Chloride [Moles/Vol] 108 mmol/L Normal 101-111 [facility] Comment on above: Performed By: #### 1 [id number], 2285144952, 8915161, 5860454049, 7695779458, 0985575 #### [facility] (DEFAULT) [address] [place] [address] 42845 CO2 [Moles/Vol] 27 mmol/L Normal 21-32 [facility] Comment on above: Performed By: #### 1 [id number], 5531005827, 7733790, 0487776861, 9104723568, 5988356 #### [facility] (DEFAULT) [address] [place] [address] 30285 Creatinine [Mass/Vol] 0.80 mg/dL Normal 0.60-1.30 [facility] Comment on above: Performed By: #### 1 [id number], 5092876634, 3420525, 8505571522, 9545696131, 7314040 #### [facility] (DEFAULT) [address] [place] [address] 20439 Globulin (S) [Mass/Vol] 2.8 g/dL Normal 1.5-4.3 [facility] Comment on above: Performed By: #### 1 [id number], 6296283305, 9316487, 1721139115, 7300272847, 2996105 #### [facility] (DEFAULT) [address] [place] [address] 92901 Glucose [Mass/Vol] 100.0 mg/dL Normal 74.0-118.0 [facility] Comment on above: Performed By: #### 1 [id number], 3203352708, 2186509, 0135707523, 8357240727, 7467585 #### [facility] (DEFAULT) [address] [place] [address] 74690 Osmolality 274 mOsm/L Invalid Interpretation Code [facility] Comment on above: Performed By: #### 1 [id number], 3662738714, 0340748, 9173470178, 8021132370, 0141574 #### [facility] (DEFAULT) [address] [place] [address] 28403 Potassium [Moles/Vol] 3.6 mmol/L Normal 3.6-5.1 [facility] Comment on above: Performed By: #### 1 [id number], 5088816535, 4581868, 0439828009, 1471937593, 9347906 #### [facility] (DEFAULT) [address] [place] [address] Protein [Mass/Vol] 6.7 g/dL Normal 6.5-8.1 [facility] Comment on above: Performed By: #### 1 [id number], 2171091161, 0669257, 1435916737, 6177389961, 9995165 #### [facility] (DEFAULT) [address] [place] [address] Sodium [Moles/Vol] 137.0 mmol/L Normal 136.0-144.0 [facility] Comment on above: Performed By: #### 1 [id number], 8651608021, 9977368, 7854390897, 5140568583, 5018879 #### [facility] (DEFAULT) [address] [place] [address] Urea nitrogen [Mass/Vol] 14 mg/dL Normal 8-26 [facility] Comment on above: Performed By: #### 1 [id number], 3611956838, 5147350, 2233324141, 3658887336, 2653230 #### [facility] (DEFAULT) [address] [place] [address] Urea nitrogen/Creatinine [Mass ratio] 17.5 mg/mg High 4.6-16.2 [facility] Comment on above: Performed By: #### 1 [id number], 7065809238, 0679413, 6075561140, 7183541725, 5493770 #### [facility] (DEFAULT) [address] [place] [address] Hemogram Standardon 09-14-19 Erythrocyte distribution width (RBC) [Ratio] 13.3 % Normal 11.5-15.0 [facility] Comment on above: Performed By: #### 1 [id number], 0936683966, 2350365, 8947467006, 8057402946, 8594619 #### [facility] (DEFAULT) [address] [place] [address] Hematocrit (Bld) [Volume fraction] 39.3 % Normal 33.7-40.4 [facility] Comment on above: Performed By: #### 1 [id number], 5754792899, 7866710, 7634014525, 6384592663, 0209874 #### [facility] (DEFAULT) [address] [place] [address] 44092 Hemoglobin (Bld) [Mass/Vol] 13.0 g/dL Normal 11.3-15.9 [facility] Comment on above: Performed By: #### 1 [id number], 0277056492, 1579906, 7031920155, 9412701305, 2678180 #### [facility] (DEFAULT) [address] [place] [address] 93614 MCH (RBC) [Entitic mass] 32 pg Normal 24-34 [facility] Comment on above: Performed By: #### 1 [id number], 2377017165, 7174835, 6942733416, 0367109079, 2260255 #### [facility] (DEFAULT) [address] [place] [address] 23114 MCHC (RBC) [Mass/Vol] 33 g/dL Normal 26-37 [facility] Comment on above: Performed By: #### 1 [id number], 7546702951, 9783749, 0109823560, 5895927608, 6019747 #### [facility] (DEFAULT) [address] [place] [address] 86982 MCV (RBC) [Entitic vol] 96 fL Normal 81-100 [facility] Comment on above: Performed By: #### 1 [id number], 1988573683, 6423323, 2013113237, 7172948121, 5218328 #### [facility] (DEFAULT) [address] [place] [address] 42356 Platelet 236 x10 Normal 138-427 [facility] Comment on above: Performed By: #### 1 [id number], 0971807959, 5282926, 4777680352, 1282421145, 5585808 #### [facility] (DEFAULT) [address] [place] [address] 25048 Platelet mean volume (Bld) [Entitic vol] 9.7 fL Normal 6.3-10.2 [facility] Comment on above: Performed By: #### 1 [id number], 3661150818, 4573498, 6533601902, 4072630570, 1162350 #### [facility] (DEFAULT) [address] [place] [address] RBC 4.09 x10 Normal 3.70-5.30 [facility] Comment on above: Performed By: #### 1 [id number], 2822955828, 1098590, 6816271007, 4268184451, 8116819 #### [facility] (DEFAULT) [address] [place] [address] 34979 WBC 4.6 x10 Normal 3.5-10.5 [facility] Comment on above: Performed By: #### 1 [id number], 8740150354, 3420194, 2681572826, 2628756913, 2178486 #### [facility] (DEFAULT) [address] [place] [address] HgbA1c Standardon 09-14-2023 Glucose [Mass/Vol] 108 mg/dL Invalid Interpretation Code [facility] Comment on above: Performed By: #### 1 [id number], 1547793582, 3509989, 5200871290, 3013409583, 9997923 #### [facility] (DEFAULT) [address] [place] [address] 35098 HbA1c (Bld) [Mass fraction] 5.4 % Normal 4.6-6.2 [facility] Comment on above: Performed By: #### 1 [id number], 7833646347, 7012465, 2063616100, 7887178269, 2621901 #### [facility] (DEFAULT) [address] [place] [address] 07631 .Hb 13.5 Invalid Interpretation Code [facility] Comment on above: Performed By: #### 1 [id number], 6449070277, 3408197, 9811298450, 8301125978, 7565656 #### [facility] (DEFAULT) [address] [place] [address] 94647 .Hgb A1c 0.48 g/dL Invalid Interpretation Code [facility] Comment on above: Performed By: #### 1 [id number], 6040010509, 6451825, 8407373292, 8263488848, 9447003 #### [facility] (DEFAULT) [address] [place] [address] 91863 Lipid Panel Standardon 09-13 Cholesterol [Mass/Vol] 123.0 mg/dL Normal 66.0-200.0 [facility] Comment on above: Performed By: #### 1 [id number], 8042489670, 3379289, 6174541770, 3881757558, 0011565 #### [facility] (DEFAULT) [address] [place] [address] 89192 Cholesterol in HDL [Mass/Vol] 46 mg/dL Normal 40-71 [facility] Comment on above: Performed By: #### 1 [id number], 5857305296, 3999872, 2080483741, 4653277276, 3348645 #### [facility] (DEFAULT) [address] [place] [address] 98252 Cholesterol in LDL [Mass/Vol] 39 mg/dL Normal 1-100 [facility] Comment on above: Performed By: #### 1 [id number], 0405806720, 1007248, 0362212245, 7954657058, 6285695 #### [facility] (DEFAULT) [address] [place] [address] 32947 Cholesterol.total/Ch olesterol in HDL [Mass ratio] 2.6 {ratio} Normal 0.0-4.5 [facility] Comment on above: Performed By: #### 1 [id number], 0361286781, 8092345, 9277562272, 0329582835, 3117795 #### [facility] (DEFAULT) [address] [place] [address] 14240 Triglyceride [Mass/Vol] 189.0 mg/dL High 0.0-150.0 [facility] Comment on above: Performed By: #### 1 [id number], 4001337342, 8010138, 5752890950, 2714125119, 4013074 #### [facility] (DEFAULT) [address] [place] [address] VLDL. 38 mg/dL Normal 5-40 [facility] Comment on above: Performed By: #### 1 [id number], 3080539052, 3569679, 8379867412, 8849055291, 9509553 #### [facility] (DEFAULT) [address] [place] [address] 31166 TSHon 09-14-2023 TSH Qn 0.21 m[IU]/L Low 0.45-5.33 [facility] Comment on above: Performed By: #### 1 [id number], 9376572068, 4895937, 6229855695, 9145872303, 2293794 #### [facility] (DEFAULT) [address] [place] [address] Vit D25 OHon 09-14-2023 Vitamin D 25 OH 38 ng/mL Normal 30-100 [facility] Comment on above: Performed By: #### 1 [id number], [id number], 6208151, 7561010158, 4766020440, 1020157 #### [facility] (DEFAULT) [address] [place] [address] CHEMISTRYOrdered By: SYSTEM SYSTEM on 06-11-2021 Free T4 index Calc [Mass/Vol] 5.40 ng/dL Low 5.90 - 13.10 ng/dL [facility] Remisol T4 [Mass/Vol] 5.0 ug/dL Normal 4.6 - 9.1 mcg/dL [facility] Remisol T4 uptake [Mass/Vol] 43.2 % Normal 32.0 - 48.4 % F [facility] Remisol TSH Qn 0.67 m[IU]/L Normal 0.34 - 5.60 mcIU/mL [facility] Remisol Vital Signs Date Time Vital Sign Value Performing Clinician Danae mancini 12-15-2023 09:18-0500 Blood Pressure Location Diego HARLEY [facility] [place] 12-15-2023 09:18-0500 Diastolic blood pressure 77 mm[Hg] Diego HARLEY [facility] 12-15-2023 09:18-0500 Heart rate 85 /min Diego HARLEY [facility] 12-15-2023 09:18-0500 Respiratory rate 16 /min Diego HARLEY [facility] 12-15-2023 09:18-0500 Systolic blood pressure 114 mm[Hg] Diego HARLEY [facility] 12-04-2023 15:33-0400 Body weight 72.12 kg Nancy Lara MD Work Phone: [facility] 12-04-2023 15:33-0400 Diastolic blood pressure 60 mm[Hg] Nancy Lara MD Work Phone: [facility] 12-04-2023 15:33-0400 Systolic blood pressure 100 mm[Hg] Nancy Lara MD Work Phone: [facility] Encounters Encounter Date Encounter Type Care Provider Facility Start: 12-15-2023 End: 12-15-2023 ambulatory Diego MOSCOSOJay Facility:[facility] Start: 12-15-2023 End: 12-15-2023 Patient encounter procedure Diego HARLEY [facility] Start: 12-04-2023 End: 12-04-2023 ambulatory NANCY LARA Not Available Start: 12-04-2023 End: 12-04-2023 Patient encounter status Nancy Lara MD Work Phone: [facility] Start: 12-04-2023 End: 12-04-2023 Periodic preventive med est patient 18-39 yrs Nancy Lara MD Work Phone: [facility] Comment on above: Encounter for screen ing mammogram for malignant neoplasm of breast; Screening for malignant neoplasm of cervix; Encounter for gynecological examination without abnormal finding; control counseling Start: 09-14-2023 End: 09-14-2023 ambulatory None Provider Facility:[facility] Start: 06-11-2021 End: 06-11-2021 Patient encounter procedure JULIANA CISNEROS [facility] Start: 02-24-2021 ambulatory JULIANA INTERIANO Facility:[facility] 1 Procedures Date Procedure Procedure Detail Performing Clinician Start: 04-17-2015 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 JULIANA CISNEROS Start: 02-06-2001 excision foot lesion CAPRICE CISNEROS None (qualifier value) ADRIAN CISNEROS Plan of Treatment Date Care Activity Detail Author Start: 01-16-2024 End: 02-02-2025 DBT Breast - bilateral screening Bilateral screening mammogram with tomosynthesis Imaging Routine Encounter for screening mammogram for malignant neoplasm of breast Expected: 01/16/2024, Expires: 02/02/2025 [facility] Work Phone: Comment on above: Expected: 01/16/2024 , Expires: 02/02/2025 Start: 12-28-2023 End: 12-28-2023 Patient encounter procedure 12/28/2023 2:00 PM EST Office Visit [facility] [address] [place] [address] Nancy Lara MD [address] [place], [place] [id number] [facility] Start: 12-28-2023 End: 12-28-2023 Professional / ancillary services management 12/28/2023 1:00 PM EST Ancillary Procedure [facility] [address] [place] [address] [facility] Start: 12-05-2023 End: 12-05-2023 Clinical Support 12/05/2023 12:30 PM EDT Clinical Support [facility] [address] [place] [id number] Nancy Lara MD [address] [place] [address] [facility] Start: 10-30-2022 Screening for malign ant neoplasm of cervix [facility] Start: 01-14-2005 Screening for malign ant neoplasm of cervix Pap Smear [facility] hCG, qualitative hCG, qualitativ e Lab Routine control counseling Ordered: 12/04/2023 [facility] Comment on above: Ordered: 12/04/2023 SENDOUT TEST MISCELLANEOUS [facility] SENDOUT TEST MISCELLANEOUS [facility] Lab Routine Screening for malignant neoplasm of cervix Encounter for gynecological examination without abnormal finding Ordered: 12/04/2023 [facility] Comment on above: Ordered: 12/04/2023 Immunizations Immunization Date Immunization Notes Care Provider Fa [facility] 11-18-2023 influenza virus vaccine, unspecified formulation Diego HARLEY [facility] [place] 11-11-2021 influenza virus vaccine, unspecified formulation Diego HARLEY [facility] Comment on above: Reason for Medicatio n: Prophylaxis 02-05-2021 COVID-19, mRNA, LNP- S, PF, 30 mcg/0.3 mL dose JULIANASPENCER CISNEROS [facility] Comment on above: Reason for Medicatio n: Prophylaxis 12-25-2020 COVID-19, mRNA, LNP- S, PF, 30 mcg/0.3 mL dose JULIANASPENCER CISNEROS [facility] Comment on above: Reason for Medicatio n: Prophylaxis 11-23-2020 influenza virus vaccine, unspecified formulation; Translations: [Fluzone PF Quadrivalent ] JULIANA CISNEROS [facility] Comment on above: Reason for Medicatio n: Prophylaxis Payers Date Payer Category Payer [facility] BCBS [id number] 2023 Unknown [id number] 1985 Unknown [id number] 1984 Unknown [id number] 1984 Unknown [id number] 1960 Self-pay Social History Date Type Detail Facility Start: 04-29-2020 Tobacco smoking status Light t obacco smoker (finding) [facility] Comment on above: pt states every few days a few cigarettes Start: 12-04-2023 Sex Assigned At Female F [facility] Start: 12-04-2023 End: 12-15-2023 Tobacco smoking status NHIS Ex-smoker [facility] Comment on above: pt states every few days a few cigarettes History of tobacco use Current smoker [facility] History of tobacco use Cigarette Smoker [facility] Start: 12-04-2023 Tobacco use and exposure Smokeless tobacco non-user [facility] Start: 12-04-2023 Alcoholic beverage intake Current drinker of alcohol (finding) [facility] Start: 12-04-2023 History of Social function [facility] How often to you hav e a drink containing alcohol? Monthly or less [facility] How many standard drinks containing alcohol do you have on a typical day? 1 or 2 [facility] How often do you hav e 6 or more drinks on 1 occasion? Less than monthly [facility] Start: 1985 Sex assigned at Not on file [facility] Tobacco smoking status Never [facility] [place] Comment on above: pt states every few days a few cigarettes Functional Status Date Assessment Result Facility 12-15-2023 Functional Status N/A [facility] [place] Clinical Note 12-15-2023 Note Date & Type Note Facility 12-15-2023 Note General Surgery Offi ce/Clinic Note Chief Complaint consultation for colonoscopy HPI Staff 38 year old female presents on consultation from Erica Cisneros for screening colonoscopy. Never had colonoscopy in the past. Father with history of colon cancer, diagnosed age 58. History of Present Illness 38 yo female with h/o hypothyroidism, anxiety, ALLIE, referred for colorectal screening; fmhx of colon cancer in patient's father, dx at age 58; denies change in bms or blood in stools, no abd complaints; no abd operations or previous colonoscopy; no asa or NSAID use; former smoker; no fmhx of IBD. Review of Systems PHQ Score Initial Depression Screen Score: 0 SCORE ROS - Provider Constitutional: no fever, no sweats, no weight loss. Eyes: no glasses, no blurred vision, no visual loss. ENMT: no dentures, no hoarseness, no swallowing difficulties, no hearing loss, no ear infection(s), no nose bleeds. Cardiovascular: normal blood pressure, no chest pain, regular heartbeat, no heart murmur. Respiratory: no shortness of breath, no cough, no asthma, no wheezing. Gastrointestinal: no nausea, no vomiting, no diarrhea, no constipation, no blood in stool, no change in bowel habits, no abdominal pain, no hepatitis. Genitourinary: no kidney stones, no urine infection, no dysuria. Musculoskeletal: no pain, no weakness. Skin: no changing moles, no rash, no skin lumps. Neurologic: no seizures, no epilepsy, no headache. Psychiatric: no emotional or psychiatric problem. Heme/Lymph: no bleeding problems, no anemia, no blood clots, no transfusions. Allergy/Immunologic: no swollen lymph nodes/glands, no IV drug abuse. Other: Additional ROS info: Except as noted in the above Review of Systems and in the History of Present Illness, all other systems have been reviewed and are negative or noncontributory. Physical Exam Vitals & Measurements HR: 85(Peripheral) RR: 16 BP: 114/77 HT: 61 in HT: 156 cm WT: 73.4 kg WT: 161.48 lb BMI: 30.16 HEENT: normal conjunctiva, sclera clear, no scleral icterus, EOM intact, PERRLA, oral mucosa moist without lesions. Neck: trachea midline, no mass, symmetric, no thyromegaly or nodules, no adenopathy Respiratory: lungs CTA, respirations non labored. Cardiovascular: regular rate and rhythm, no murmur, no pedal edema or varicosities. Gastrointestinal: soft, non distended, no tenderness, no masses, no palpable hernias, diastasis recti no, no hepatosplenomegaly; normal bs Lymphatic: no cervical adenopathy, no supraclavicular adenopathy. Musculoskeletal: normal gait, digits and nails without infection, nodes, cyanosis, clubbing. Skin: no rashes, no lesions, no ulcers, no subcutaneous nodules, induration. Psychiatric/Neuro: oriented to time, place, person, judgement normal, affect appropriate for age, insight intact, no focal deficits. Tests: , review of old records completed , Discussed surgical options, risks, and possible complications with patient. Assessment/Plan 1. Family history of colon cancer in father (Z80.0: Family history of malignant neoplasm of digestive organs) plan colonoscopy under anesthesia, informed consent obtained. Follow-up No qualifying data available Problem List/Past Medical History Ongoing Anxiety Family history of colon cancer in father Hypothyroidism Obesity due to excess calories Obstructive sleep apnea syndrome Smoker Historical None Procedure/Surgical History excision of enlarging painful hemangioma of scalp (04/17/2015), excision foot lesion (2001). Medications busPIRone 10 mg Tab, 10 mg= 1 tab(s), Oral, Daily Depo-Provera 150mg/mL intramuscular suspension FLUoxetine 20 mg Cap, 20 mg= 1 cap(s), Oral, Daily levothyroxine 25 mcg (0.025 mg) Tab, 25 mcg= 1 tab(s), Oral, Daily Multi Vitamin+ Allergies penicillins (Hives) sulfa drugs (Hives) Social History Alcohol Current. Beer, Wine, mixed drinks. 3-5 times per week., 12/15/2023 Substance Abuse Never., 12/15/2023 Tobacco Former smoker, quit more than 30 days ago, smokefree for 1 1/2 Tobacco Use:. Never Smokeless Tobacco Use:. Cigarettes, 1 per day. Started age 19.0 Years. Stopped age 36 Years., 12/15/2023 Family History Diabetes mellitus type 2: Mother and Sister. Hypertension: Mother. Primary malignant neoplasm of colon: Father. Immunizations Vaccine Date Status Comments influenza virus vaccine, inactivated 11/18/2023 Recorded influenza virus vaccine, inactivated 11/11/2021 Given Prophylaxis SARS-CoV-2 (COVID-19) mRNA BNT-162b2 vax 02/05/2021 Given Prophylaxis SARS-CoV-2 (COVID-19) mRNA BNT-162b2 vax 12/25/2020 Given Prophylaxis influenza virus vaccine, inactivated 11/23/[address] [facility] Comment on above: Result Comment: Elec tronically Signed By: CHERRI LONGO, Diego Currie\Date and Time Signed: 12/15/23 09:25 EST History of Present illness Narrative 12-04-2023 Nancy Lara MD - 12/04/2023 3:00 PM EDT Note Date & Type Note Facility 12-04-2023 History of Presen t illness Narrative Images from the original note were not included. Nancy Lara MD Obstetrics and Gynecology Patient: Jonathan Hernandez : 1985 (38 y.o.) Yearly Wellness Exam Date: 12/04/2023 Reason for Visit - Chief Complaint Patient presents with Gynecologic Exam Contraception LMP: approx 11/27/23 Last Mammogram: first mammogram ordered Last Pap: about 2021 Complaints: Would like to discuss control, heavy painful menses, and hot flashes The patient presents with a chief complaint of irregular periods and requests control for menstrual regulation. She reports having been on control in the past, including two IUDs and Depo-Provera, but has not used any for the last couple of years. The patient has recently experienced two periods within the same month, occurring during the first and last weeks. She denies using control for contraceptive purposes, as she is not currently sexually active. The patient also expresses concern about her family history of colon cancer and her twin sister's recent health issues, including ovarian cysts and an ostomy bag. She is scheduled for a colonoscopy and is awaiting further information from her sister's doctor to determine the exact nature of her sister's condition. The patient is interested in undergoing an ultrasound due to her family history and her sister's recent health problems. Visit Vitals BP 100/60 Wt 159 lb LMP 11/27/2023 (Approximate) OB Status Having periods Smoking Status Former History of Present Illness, Associated Treatments and Results - OB History Para Term AB Living 2 2 0 0 0 0 SAB IAB Ectopic Multiple Live Births 0 0 0 0 0 # Outcome Date GA Lbr Carter/2nd Weight Sex Type Anes PTL Lv 2 Para Vag-Spont 1 Para Vag-Spont Review of Systems - Constitutional: Negative. HENT: Negative. Eyes: Negative. Respiratory: Negative. Cardiovascular: Negative. Gastrointestinal: Negative. Endocrine: Negative. Genitourinary: Negative. Musculoskeletal: Negative. Skin: Negative. Allergic/Immunologic: Negative. Neurological: Negative. Hematological: Negative. Psychiatric/Behavioral: Negative. Allergies Allergen Reactions Erythromycin Unknown allergy Penicillins Unknown allergy Sulfa Antibiotics Unknown allergy Current Outpatient Medications: FLUoxetine (PROzac) 10 MG capsule, Take 10 mg by mouth Daily, Disp: , Rfl: levothyroxine (Synthroid, Levoxyl) 25 MCG tablet, , Disp: , Rfl: busPIRone (Buspar) 10 MG tablet, Take 10 mg by mouth in the morning and 10 mg at noon and 10 mg in the evening., Disp: , Rfl: valACYclovir (Valtrex) 1 g tablet, TAKE 1 TABLET BY MOUTH TWICE A DAY FOR 5 DAYS for 5, Disp: , Rfl: History reviewed. No pertinent past medical history. History reviewed. No pertinent surgical history. Family History Problem Relation Name Age of Onset Endometriosis Mother Hyperlipidemia Mother Hypertension Mother Heart failure Mother Colon cancer Father Asthma Father Ovarian cysts Sister Endometriosis Sister Heart attack Maternal Grandfather Pancreatic cancer Paternal Grandmother Diabetes Paternal Grandmother Diabetes Paternal Grandfather Social History Tobacco Use Smoking Status Former Types: Cigarettes Smokeless Tobacco Never Physical Exam - General appearance, mentation, extraocular movements, facial strength and movement, hearing, upper and lower extremity strength and tone, sensation to gross testing, coordination, and gait are normal or at baseline unless noted below. Physical Exam Constitutional: Appearance: Normal appearance. Genitourinary: Right Labia: No rash or lesions. Left Labia: No lesions or rash. No vaginal discharge or erythema. No vaginal prolapse present. No vaginal atrophy present. Right Adnexa: not tender and no mass present. Left Adnexa: not tender and no mass present. No cervical lesion. Uterus is not tender. Uterus is anteverted. Breasts: Right: Normal. No mass or nipple discharge. Left: Normal. No mass or nipple discharge. HENT: Head: Normocephalic and atraumatic. Cardiovascular: Rate and Rhythm: Normal rate and regular rhythm. Pulmonary: Breath sounds: Normal breath sounds. Abdominal: General: There is no distension. Palpations: Abdomen is soft. There is no mass. Tenderness: There is no abdominal tenderness. Musculoskeletal: General: Normal range of motion. Cervical back: Neck supple. Lymphadenopathy: Cervical: No cervical adenopathy. Neurological: Mental Status: She is alert and oriented to person, place, and time. Skin: General: Skin is warm and dry. Psychiatric: Mood and Affect: Mood normal. Fcbd dense rectocele Assessment/Plan ICD-10-CM 1. Encounter for screening mammogram for malignant neoplasm of breast Z12.31 Bilateral screening mammogram with tomosynthesis 2. Screening for malignant neoplasm of cervix Z12.4 SENDOUT TEST MISCELLANEOUS [facility] 3. Encounter for gynecological examination without abnormal finding Z01.419 SENDOUT TEST MISCELLANEOUS [facility] 4. control counseling Z30.09 Jonathan was seen today for gynecologic exam and contraception. Diagnoses and all orders for this visit: Encounter for screening mammogram for malignant neoplasm of breast - Bilateral screening mammogram with tomosynthesis; Future Screening for malignant neoplasm of cervix - SENDOUT TEST MISCELLANEOUS [facility] Encounter for gynecological examination without abnormal finding - SENDOUT TEST MISCELLANEOUS [facility] control counseling Pap and exam performed. Mammogram ordered Results can be found in My Chart in 7 days Homonal therapy discussed Return 1 year/prn 1. Dysmenorrhea and irregular periods: - Plan: a) Initiate Depo-Provera injections for menstrual cycle regulation. b) Schedule the patient for regular injections at the clinic. 2. Family history of colon cancer and sister's recent colon issues: - Plan: a) Encourage the patient to follow up with their scheduled colonoscopy. b) Recommend obtaining medical records from the sister to better understand her condition and potential implications for the patient. 3. Concern for possible ovarian issues: - Family history and twin sister's recent ovarian cysts - Plan: a) Schedule a pelvic ultrasound to assess for any ovarian abnormalities. b) Encourage the patient to obtain her sister's medical records to better understand her condition and potential implications for the patient. 4. Emotional distress: - Related to the anniversary of father's and concern for personal health - Plan: a) Encourage the patient to seek support from friends, family, or a mental health professional to help cope with emotional distress. b) Monitor the patient's emotional well-being during follow-up visits. documented in this encounter [facility] Healthcare Evaluation + Plan note Note Date & Type Note Facility Evaluation + Plan note No data available for this section [facility] Evaluation note Note Date & Type Note Facility Evaluation note Diagnosis Encounter for screening mammogram for malignant neoplasm of breast Screening for malignant neoplasm of cervix Screening for malignant neoplasm of the cervix Encounter for gynecological examination without abnormal finding control counseling documented in this encounter [facility] Hospital Discharge instructions Note Date & Type Note Facility Hospital Discharge instructions No data available for this section [facility] Progress note Note Date & Type Note Facility Progress note No data available for this section [facility] [place] Summary Purpose Family History No Family History Records FoundNo Family History Records FoundNo Family History Records Found No data available for this section No Family History Records Found Advance Directives No Advanced Directives Records FoundNo Advanced Directives Records FoundNo Advanced Directives Records FoundNo Advanced Directives Records Found Additional Source Comments INFORMATION SOURCE (unrecogn ized section and content) DATE CREATED AUTHOR 02/25/2021 [facility] DATE CREATED AUTHOR AUTHOR'S ORGANIZ ATION 09/19/2023 [facility] DATE CREATED AUTHOR AUTHOR'S ORGANIZ ATION 12/05/2023 [facility] EPIC DATE CREATED AUTHOR AUTHOR'S ORGANIZ ATION 12/17/2023 [facility] Reason for Visit (unrecogniz ed section and content) Reason Comments Gynecologic Exam Contraception Care Teams (unrecognized sec tion and content) Red Leader Relationship Specialty Start Date End Date Gordon Chirinos MD [address] [place] [id number] PCP - General Family Medicine 10/31/23 Juliana Cisneros MD [address] [place], [place] [id number] Referring Physician Family Medicine 10/31/23 FOR RECORDS PERTAINING TO PATIENTS WHO ARE [...] BE BASED ON THE PRIMARY CLINICAL RECORDS. [employer] [facility]. provides no warranty or guarantee of the accuracy or completeness of information in this document.
[2024-01-17 07:24] VITALS: BP 122/83; PULSE 85; TEMP 36.1; O2SAT 97; BMI 29.6
[2024-01-17] MEDS: 0.9 % SODIUM CHLORIDE 500 ML 50 ML IV (07:39)
[2024-01-17 07:43] LABS: HCG Qualitative NEGATIVE (NEGATIVE); Internal Control Within Normal Limits
[2024-01-17 08:32] VITALS: BP 90/78; PULSE 92; TEMP 36.6; O2SAT 95
[2024-01-17 08:47] VITALS: BP 103/49; PULSE 91; O2SAT 99
[2024-01-17 09:02] VITALS: BP 115/69; PULSE 88; O2SAT 95
== END 2024-01-17 09:10 | disposition home or self-care (01) ==
PROVIDERS: PCP Nurse Practitioner Family; Visit Provider Surgery
PROC: (CPT 812; principal; 2024-01-17 07:55)
DX: Z12.11 Encounter for screening for malignant neoplasm of colon (principal); Z80.0 Family history of malignant neoplasm of digestive organs; K62.1 Rectal polyp; E03.9 Hypothyroidism, unspecified; G47.33 Obstructive sleep apnea (adult) (pediatric); F41.9 Anxiety disorder, unspecified; Z87.891 Personal history of nicotine dependence; E66.01 Morbid (severe) obesity due to excess calories; Z68.29 Body mass index [BMI] 29.0-29.9, adult
CPT/HCPCS: 45385; 36415; 84703; 88305; J2704